=== PATIENT | male | born 1990 | race American Indian/Alaskan Native ===

== ENCOUNTER 2020-07-26 10:01 | Emergency (ER) | payer SELFPAY ==
[2020-07-26] MEDS ORDERED: TETANUS,DIPH,PERTUSS(ACELL) VACCINE 0.5 ML SYRINGE IM ONE (10:34)
[2020-07-26 10:38] VITALS: BP 123/70
--- NOTE | 2020-07-26 10:42 | Emergency Department Report ---
Chief Complaint: Skin/Abscess/Foreign Body Stated Complaint: R FOOT LAC Time Seen by Provider: 07/26/20 10:34 - HPI History of Present Illness: 29-year-old male patient presents emergency department with complaints of a skin tear to the bottom of his right foot occurring yesterday. Patient states he was running from police when he fell and scraped his foot. He has superficial abrasions to the bilateral lower extremities. Cannot recall last tetanus immunization. No other injuries. - ROS Review of Systems: CARDIOVASCULAR: Negative for chest pain. PULMONARY: Negative for dyspnea. GASTROINTESTINAL: Negative for abdominal pain. MUSCULOSKELETAL: Negative for back pain and neck pain. NEUROLOGICAL: Negative for headache. INTEGUMENTARY: Positive for abrasions. - Exam Vital Signs: Vital Signs 07/26/20 10:36 Temperature 98.7 F Pulse Rate 111 H Blood Pressure 123/70 Physical Exam: General: Awake, appropriately interactive, no acute distress. Neck: Supple. Full range of motion intact. Cardiovascular: Normal peripheral perfusion. Pulmonary: No respiratory distress. Patient is speaking normally without use of accessory muscles. Skin: Multiple superficial abrasions noted to the distal lower extremities. Superficial round skin tear noted to the plantar aspect of the right foot. Distal neurovascular and motor/sensory function intact. Neurological: No facial asymmetry. Speech is clear. Follows commands. Patient is alert and oriented. Musculoskeletal: Moves all four extremities spontaneously with normal range of motion. Psych: Cooperative. Appropriate mood and affect. MSE screening note: Focused history and physical exam performed. Due to findings the following was ordered: ED Medical Decision Making - Medical Decision Making Patient presents emergency department for evaluation of skin tear on plantar aspect of right foot. Tetanus updated. No clinical indication for primary wound closure at this time. Dressing applied. Patient encouraged to change dressing daily, keep wound clean and covered, and apply antibiotic ointment. Referred to primary care provider for close outpatient follow-up. Patient expressed understanding and is agreeable to plan of care. Strict return precautions provided. ED Disposition for MSE Clinical Impression: Tear of skin of plantar aspect of right foot Qualifiers: Encounter type: initial encounter Qualified Code(s): S91.311A - Laceration without foreign body, right foot, initial encounter Lower leg abrasion Qualifiers: Encounter type: initial encounter Laterality: unspecified laterality Qualified Code(s): S80.819A - Abrasion, unspecified lower leg, initial encounter Disposition: MED SCREENING EXAM-CONT Is pt being admited?: No Does the pt Need Aspirin: No Condition: Stable Instructions: Abrasion, [id number] Additional Instructions: Take Tylenol every 4 hours and Motrin every 8 hours as needed for pain. Apply Neosporin ointment to the affected area 3 times daily. Keep wound clean and covered. Change dressing daily. Follow-up with your primary care provider within 1 week. Call Tuesday to schedule an appointment. Return to the emergency department immediately for new or worsening symptoms. Referrals: GUNNAR SALGADO MD [Staff Physician] - 3-5 Days Time of Disposition: 10:41
== END 2020-07-26 11:47 | disposition home or self-care (01) ==
LOC: ED 10:01
DX: M25.571 Pain in right ankle and joints of right foot (principal); Z53.21 Procedure and treatment not carried out due to patient leaving prior to being seen by health care provider
CPT/HCPCS: 90715

== ENCOUNTER 2021-01-06 09:54 | Emergency (ER) | payer SELFPAY ==
[2021-01-06] MEDS ORDERED: dexAMETHasone 4 MG/ML VIAL IM STA (10:47)
[2021-01-06] MEDS ORDERED: KETOROLAC 60 MG/2 ML INJ IM ONE (10:47)
--- NOTE | 2021-01-06 10:54 | Emergency Department Report ---
ED General Adult HPI - General Stated complaint: LOWER BACK PAIN Time Seen by Provider: 01/06/21 10:37 - History of Present Illness Initial comments: 30-year-old -[place] male patient presents with complaints of mid/low back pain starting 3 days ago. Patient states over the weekend, he helped a friend move into a new home. The pain was mild initially per patient and his back, however the pain worsened after taking a long hot shower. He states Tylenol is not helping with his symptoms. He has not tried any other medications. He rates his pain as a 10/10 in severity. Patient denies any numbness/tingling/weakness in his limbs, loss of bladder/bowel control, history of cancer, or direct trauma to his back. No past medical history or allergies per patient. - Related Data Previous Rx's Medication Instructions Recorded Last Taken Type Naproxen 500 mg PO BID PRN #20 tablet 01/06/21 Unknown Rx methOCARBAMOL [Robaxin TAB] 750 - 1,500 mg PO TID PRN #20 01/06/21 Unknown Rx tablet Allergies Allergy/AdvReac Type Severity Reaction Status Date / Time No Known Allergies Allergy Unverified 07/26/20 10:35 ED Review of Systems ROS: Stated complaint: LOWER BACK PAIN Other details as noted in HPI Constitutional: denies: chills, fever, malaise Respiratory: denies: cough, shortness of breath Cardiovascular: denies: chest pain Gastrointestinal: denies: abdominal pain, hematochezia Genitourinary: denies: urgency, dysuria, frequency, hematuria Musculoskeletal: back pain Skin: denies: change in color Neurological: denies: headache, weakness, numbness, paresthesias, abnormal gait ED Past Medical Hx - Surgical History Additional Surgical History: foot surgery - Social History Smoking Status: Current Every Day Smoker Substance Use Type: Alcohol, Marijuana - Medications Home Medications: Home Medications Medication Instructions Recorded Confirmed Last Taken Type Naproxen 500 mg PO BID PRN #20 tablet 01/06/21 Unknown Rx methOCARBAMOL [Robaxin TAB] 750 - 1,500 mg PO TID PRN #20 01/06/21 Unknown Rx tablet ED Physical Exam - General General appearance: alert, in no apparent distress - Head Head exam: Present: atraumatic, normocephalic - Eye Eye exam: Present: normal appearance. Absent: scleral icterus - Neck Neck exam: Present: normal inspection - Respiratory Respiratory exam: Absent: respiratory distress - Cardiovascular Cardiovascular Exam: Present: regular rate, normal rhythm. Absent: systolic murmur, diastolic murmur, rubs, gallop - Back Exam Back exam: Present: paraspinal tenderness (Bilateral thoracic and lumbar tenderness to palpation). Absent: vertebral tenderness, other (No step-offs or obvious deformities of the spine noted) - Neurological Exam Neurological exam: Present: alert, oriented X3 - Psychiatric Psychiatric exam: Present: normal affect, normal mood - Skin Skin exam: Present: warm, dry, intact, normal color. Absent: rash ED Course Vital Signs 01/06/21 01/06/21 11:01 13:06 Temperature 98 F Pulse Rate 65 55 L Respiratory 16 16 Rate Blood Pressure 105/65 Blood Pressure 99/63 [Left] O2 Sat by Pulse 100 99 Oximetry ED Medical Decision Making - Medical Decision Making 30-year-old -[place] male patient presents with complaints of mid/low back pain starting 3 days ago. Patient states over the weekend, he helped a friend move into a new home. The pain was mild initially per patient and his back, however the pain worsened after taking a long hot shower. He states Tylenol is not helping with his symptoms. He has not tried any other medications. He rates his pain as a 10/10 in severity. Patient denies any num bness/tingling/weakness in his limbs, loss of bladder/bowel control, history of cancer, or direct trauma to his back. No past medical history or allergies per patient. No vertebral tenderness to palpation on exam. Patient given Toradol, Decadron, and Robaxin. He states his pain is completely resolved. He is not able to fully move the spine without difficulty and is ambulating normally. He is well- appearing stable for discharge home. Discussed presumptive diagnosis, treatment plan, and signs and symptoms that should prompt immediate return to the emergency department in detail with patient who verbalizes understanding. Patient to follow-up with primary care in 3 to 5 days. Critical care attestation.: If time is entered above; I have spent that time in minutes in the direct care of this critically ill patient, excluding procedure time. ED Disposition Clinical Impression: Low back pain Disposition: HOME / SELF CARE / HOMELESS Is pt being admited?: No Condition: Stable Instructions: Acute Back Pain, Adult, Thoracic Strain Prescriptions: Naproxen 500 mg PO BID PRN #20 tablet PRN Reason: pain methOCARBAMOL [Robaxin TAB] 750 - 1,500 mg PO TID PRN #20 tablet PRN Reason: muscle spasm/tightness Referrals: [facility] [Provider Group] - 3-5 Days
[2021-01-06 13:08] VITALS: BP 99/63
== END 2021-01-06 13:06 | disposition home or self-care (01) ==
LOC: ED 09:54
DX: M54.5 Low back pain (principal); F12.90 Cannabis use, unspecified, uncomplicated; F17.200 Nicotine dependence, unspecified, uncomplicated; Z72.89 Other problems related to lifestyle; Z79.899 Other long term (current) drug therapy
CPT/HCPCS: 96372; 99282; J1100; J1885

== ENCOUNTER 2021-08-26 22:06 | Emergency (ER) | payer SELFPAY ==
[2021-08-26 22:31] VITALS: BP 116/81
== END 2021-08-27 11:09 | disposition left against medical advice (07) ==
LOC: ED 22:06
DX: M79.18 Myalgia, other site (principal); Z53.21 Procedure and treatment not carried out due to patient leaving prior to being seen by health care provider